=== PATIENT | female | born 1955 | race Caucasian/White ===

== ENCOUNTER 2016-08-18 14:17 | Outpatient (CLI) | payer OTHER ==
--- NOTE | 2016-08-20 14:32 | Mammography Report ---
DIGITAL SCREENING MAMMOGRAM: 08/18/2016 CLINICAL INDICATION: A 61-year-old for screening. COMPARISON: 08/2015, 05/2014, 04/2013, 04/2012, 03/2011, 01/2010, 11/2008, 10/2007. TECHNIQUE: Routine CC and MLO projections were obtained of the breasts. FINDINGS: Scattered fibroglandular tissue is present within the breasts. There are no dominant luis s, suspicious microcalcifications, or secondary signs of malignancy. In comparison to the previous st udies, there are no significant changes. ASSESSMENT: NO MAMMOGRAPHIC EVIDENCE OF MALIGNANCY. NO SIGNIFICANT INTERVAL CHANGES. RECOMMENDATION: Screening mammography is recommended annually. BI-RADS category 1 - negative. STANDARD QUALIFYING STATEMENTS 1. This examination was reviewed with the aid of Computed-Aided Detection (CAD). 2. A negative or benign imaging report should not delay biopsy if clinically suspicious findings are present. Consider surgical consultation if warranted. More than 5% of cancers are not identified by i maging. 3. Dense breasts may obscure an underlying neoplasm. JOB #: [id number] EXT JOB #:[id number]
== END 2016-08-18 14:18 | disposition home or self-care (01) ==
LOC: DI.N 14:17
PROVIDERS: ATTEND Family Medicine
DX: Z12.31 Encounter for screening mammogram for malignant neoplasm of breast (principal)
CPT/HCPCS: 77067

== ENCOUNTER 2017-08-13 13:49 | Outpatient (CLI) | payer BC ==
--- NOTE | 2017-08-16 14:02 | Mammography Report ---
SCREENING MAMMOGRAM: 08/13/2017 The patient will need to return for additional imaging due to technical factors. We will contact the patient to schedule their return. IMPRESSION: INCOMPLETE. RECOMMENDATION: Additional imaging. BIRADS CATEGORY: 0 - INCOMPLETE. STANDARD QUALIFYING STATEMENTS: 1. This examination was reviewed with the aid of Computer-Aided Detection (CAD). 2. A negative or benign imaging report should not delay biopsy if clinically suspicious findings are present. Consider surgical consultation if warranted. More than 5% of cancers are not identified by imaging. 3. Dense breasts may obscure an underlying neoplasm. TD: 08/16/2017 14:01
== END 2017-08-13 13:50 | disposition home or self-care (01) ==
LOC: DI.N 13:49
PROVIDERS: ATTEND Physician Assistant Medical
DX: Z12.31 Encounter for screening mammogram for malignant neoplasm of breast (principal); Z53.8 Procedure and treatment not carried out for other reasons
CPT/HCPCS: 77067

== ENCOUNTER 2017-08-25 15:22 | Outpatient (CLI) | payer BC ==
--- NOTE | 2017-08-31 10:42 | Mammography Report ---
EXAM: [id number] [facility] ([id number] SCREENING MAMMOGRAM: 08/13/2017 The patient will need to return for additional imaging due to technical factors. We will contact the patient to schedule their return. IMPRESSION: INCOMPLETE. RECOMMENDATION: Additional imaging. BIRADS CATEGORY: 0 - INCOMPLETE. STANDARD QUALIFYING STATEMENTS 1. This examination was reviewed with the aid of Computer-Aided Detection (CAD) . 2. A negative or benign imaging report should not delay biopsy if clinically suspicious findings are present. Consider surgical consultation if warranted. More than 5% of cancers are not identified by imaging. 3. Dense breasts may obscure an underlying neoplasm. TD: 08/16/2017 14:01 Fox Raiser: Reading Radiologist: Ermias Hagen MD Releasing Radiologist: Ermias Hagen MD Released Date Time: 08/16/17 1550 <Electronically signed by Ermias Hagen MD> cc: Celestina Medrano PA-C ADDENDUM ADDENDUM of 08/25/2017 DIGITAL SCREENING MAMMOGRAM: 08/13/2017 The patient originally presented on 08/13/2017, and returned on 08/25/2017 for additional images due to technical factors. INDICATION: A 62-year-old with history of late childbearing for screening. COMPARISON: 08/18/2016, 08/19/2015, 05/28/2014, 04/20/2013, 04/28/2012, 2010. TECHNIQUE: Routine CC and MLO projections were obtained of the breasts. FINDINGS: The breasts demonstrate scattered fibroglandular densities bilaterally. Punctate, typically benign calcifications are present. No suspicious masses, clustered microcalcifications, or regions of architectural distortion are identified. IMPRESSION: BENIGN FINDINGS. RECOMMENDATION: Routine annual screening unless otherwise clinically indicated. BI-RADS category 2 - Benign findings. STANDARD QUALIFYING STATEMENTS 1. This examination was reviewed with the aid of Computed-Aided Detection (CAD). 2. A negative or benign imaging report should not delay biopsy if clinically suspicious findings are present. Consider surgical consultation if warranted. More than 5% of cancers are not identified by imaging. 3. Dense breasts may obscure an underlying neoplasm. Addendum Fox Raiser: NATHAN Addendum Reading Radiologist: Ermias Hagen MD Addendum Releasing Radiologist: Ermias Hagen MD Addendum Released Date Time: 08/27/17 1545 TD: 08/25/2017 15:47 jll 08/31/2017 [email or web address]
--- NOTE | 2017-08-31 10:46 | Mammography Report ---
EXAM: [id number] [facility] ([id number] SCREENING MAMMOGRAM: 08/13/2017 The patient will need to return for additional imaging due to technical factors. We will contact the patient to schedule their return. IMPRESSION: INCOMPLETE. RECOMMENDATION: Additional imaging. BIRADS CATEGORY: 0 - INCOMPLETE. STANDARD QUALIFYING STATEMENTS 1. This examination was reviewed with the aid of Computer-Aided Detection (CAD) . 2. A negative or benign imaging report should not delay biopsy if clinically suspicious findings are present. Consider surgical consultation if warranted. More than 5% of cancers are not identified by imaging. 3. Dense breasts may obscure an underlying neoplasm. TD: 08/16/2017 14:01 Bowl Turner: Reading Radiologist: Ermias Hagen MD Releasing Radiologist: Ermias Hagen MD Released Date Time: 08/16/17 1550 <Electronically signed by Ermias Hagen MD> cc: Celestina Medrano PA-C ADDENDUM ADDENDUM of 08/25/2017 DIGITAL SCREENING MAMMOGRAM: 08/13/2017 The patient originally presented on 08/13/2017, and returned on 08/25/2017 for additional images due to technical factors. INDICATION: A 62-year-old with history of late childbearing for screening. COMPARISON: 08/18/2016, 08/19/2015, 05/28/2014, 04/20/2013, 04/28/2012, 2010. TECHNIQUE: Routine CC and MLO projections were obtained of the breasts. FINDINGS: The breasts demonstrate scattered fibroglandular densities bilaterally. Punctate, typically benign calcifications are present. No suspicious masses, clustered microcalcifications, or regions of architectural distortion are identified. IMPRESSION: BENIGN FINDINGS. RECOMMENDATION: Routine annual screening unless otherwise clinically indicated. BI-RADS category 2 - Benign findings. STANDARD QUALIFYING STATEMENTS 1. This examination was reviewed with the aid of Computed-Aided Detection (CAD). 2. A negative or benign imaging report should not delay biopsy if clinically suspicious findings are present. Consider surgical consultation if warranted. More than 5% of cancers are not identified by imaging. 3. Dense breasts may obscure an underlying neoplasm. Addendum Bowl Turner: NATHAN Addendum Reading Radiologist: Ermias Hagen MD Addendum Releasing Radiologist: Ermias Hagen MD Addendum Released Date Time: 08/27/17 1545 TD: 08/25/2017 15:47 jll 08/31/2017 [email or web address]
== END 2017-08-25 15:23 | disposition home or self-care (01) ==
LOC: DI 15:22
PROVIDERS: ATTEND Physician Assistant Medical
DX: Z12.31 Encounter for screening mammogram for malignant neoplasm of breast (principal)
CPT/HCPCS: 77067

== ENCOUNTER 2017-11-11 10:24 | Outpatient (CLI) | payer BC ==
--- NOTE | 2017-11-11 14:50 | XRAY Report ---
Procedure Date: 11/11/2017 Accession Number: [id number] / [id number] Procedure: XR - Knee 3 View RT CPT Code: FULL RESULT: EXAM: Knee 3 View RT DATE: 11/11/2017 11:00 AM CLINICAL HISTORY: KNEE PAIN,RT COMPARISON: None. TECHNIQUE: 3 views. FINDINGS: There is no fracture or dislocation. There are mild tricompartmental degenerative changes including joint space loss and marginal osteophytosis. There is a small joint effusion. Soft tissues are unremarkable. IMPRESSION: Mild osteoarthrosis. RADIA
== END 2017-11-11 10:25 | disposition home or self-care (01) ==
LOC: DI 10:24
PROVIDERS: ATTEND Physician Assistant Medical
DX: M17.11 Unilateral primary osteoarthritis, right knee (principal)

== ENCOUNTER 2018-08-29 14:13 | Outpatient (CLI) | payer BC ==
--- NOTE | 2018-08-30 10:37 | Mammography Report ---
Reason: SCREENING MAMMO Procedure Date: 08/29/2018 Accession Number: [id number] / [id number] Procedure: MGN - Screening Mammo Dig Bilat CPT Code: FULL RESULT: EXAM: Screening Mammo Dig Bilat DATE: 08/29/2018 2:35 PM CLINICAL HISTORY: Screening encounter. No reported risk factors. TECHNIQUE: (B) - Bilateral CC and MLO views were obtained. COMPARISON: 08/25/2017 through 05/28/2014. PARENCHYMAL PATTERN: (A) - The breast(s) demonstrate(s) scattered fibroglandular densities. FINDINGS: There are no suspicious masses, calcifications, or areas of distortion. IMPRESSION: Negative examination. BI-RADS category 1. RECOMMENDATION: (ANNUAL) - Recommend routine annual screening mammography. BI-RADS CATEGORY: (1) - Negative. STANDARD QUALIFYING STATEMENTS: 1. This examination was not reviewed with the aid of Computer-Aided Detection (CAD). 2. A negative or benign imaging report should not preclude biopsy if clinically suspicious findings are present. 3. Dense breasts may obscure an underlying neoplasm. 4. This examination was reviewed without the aid of 3D breast imaging (tomosynthesis).
== END 2018-08-29 14:14 | disposition home or self-care (01) ==
LOC: DI.N 14:13
DX: Z12.31 Encounter for screening mammogram for malignant neoplasm of breast (principal)
CPT/HCPCS: 77067

== ENCOUNTER 2018-10-12 07:32 | Day surgery (SDC) | payer BC ==
[2018-10-12] MEDS ORDERED: LACTATED RINGERS 1,000 ML IV ONE ×2 (07:41→11:30)
[2018-10-12] MEDS ORDERED: ONDANSETRON 4 MG/2 ML VIAL ONE (12:08)
[2018-10-12 12:20] VITALS: BP 117/77
== END 2018-10-12 07:33 | disposition home or self-care (01) ==
LOC: SDS 07:32
PROVIDERS: ATTEND Surgery
PROC: 0DJD8ZZ Inspection of Lower Intestinal Tract, Via Natural or Artificial Opening Endoscopic (ICD-10-PCS; principal; 2018-10-12 09:00)
DX: Z12.11 Encounter for screening for malignant neoplasm of colon (principal); K64.8 Other hemorrhoids; Z80.0 Family history of malignant neoplasm of digestive organs; J30.9 Allergic rhinitis, unspecified; Z79.82 Long term (current) use of aspirin; Z87.891 Personal history of nicotine dependence
CPT/HCPCS: 45378; J7120

== ENCOUNTER 2019-10-06 13:29 | Outpatient (CLI) | payer OTHER ==
--- NOTE | 2019-10-09 09:29 | Mammography Report ---
BILATERAL DIGITAL SCREENING MAMMOGRAM 3D/2D: 10/06/2019 CLINICAL: Routine screening. Comparison is made to exams dated: 08/29/2018 mammogram, 08/25/2017 mammogram, 08/13/2017 mammogram, and 08/18/2016 mammogram - [facility]. There are scattered fibroglandular elements in b oth breasts. There is a focal asymmetry in the right breast at 7 o'clock anterior depth. There is possible architectural distortion in the left breast at 2 o'clock middle depth. No other significant masses or calcifications are seen in either breast. IMPRESSION: INCOMPLETE: NEEDS ADDITIONAL IMAGING EVALUATION The focal asymmetry in the right breast at 7 o'clock anterior depth is indeterminate. Additional vie ws with possible ultrasound are recommended. The possible architectural distortion in the left breast at 2 o'clock middle depth is indeterminate. Additional views with possible ultrasound are recommended. This exam was interpreted at Station ID: [id number]. NOTE: For mammograms, a report in lay terms will be sent to the patient. Approximately 15% of breast malignancies will not be visualized mammographically. In the management of a palpable breast mass, a negative mammogram must not discourage biopsy of a clinically suspicious lesion. Electronically Signed By: Tova De La Cruz M.D. lk/:10/06/2019 16:09:06 ACR BI-RADS Category 0: Incomplete 3340F PARENCHYMAL PATTERN: (A) - The breast(s) demonstrate(s) scattered fibroglandular densities. BI-RADS CATEGORY: (0) - 0 Mammo and [place] [id number] Immediate follow-up LATERALITY: (B)
== END 2019-10-06 13:30 | disposition home or self-care (01) ==
LOC: DI 13:29
DX: Z12.31 Encounter for screening mammogram for malignant neoplasm of breast (principal)
CPT/HCPCS: 77063; 77067

== ENCOUNTER 2019-11-07 09:25 | Outpatient (CLI) | payer OTHER ==
--- NOTE | 2019-11-07 16:43 | DEXA Report ---
Reason: POST MENOPAUSAL Procedure Date: 11/07/2019 Accession Number: [id number] / [id number] Procedure: DEX - Dexa Spine and/or Hip CPT Code: Final Report FULL RESULT: PROCEDURE: Dexa Spine and/or Hip INDICATIONS: POST MENOPAUSAL TECHNIQUE: Dual energy x-ray absorptiometry (DXA) was performed on a [employer] System. Regions measured are the AP Spine, femoral neck, and if needed forearm. COMPARISON: None. FINDINGS: Lumbar Spine: Bone Mineral Density 1.212 g/cm/cm,T score 0.3, normal Left Hip: Bone Mineral Density 0.961 g/cm/cm,T score -0.4, normal Left Femoral Neck: Bone Mineral Density 0.95 g/cm/cm, T score 0.4, normal (T score greater or equal to -1.0: NORMAL) (T score from -1.1 to -2.4: OSTEOPENIA) (T score less than or equal to -2.5 to: OSTEOPOROSIS) Impression: Normal bone density. Patients with diagnosis of osteoporosis or osteopenia should have regular bone mineral density assessment. For those eligible for Medicare, routine testing is allowed once every 2 years. Testing frequency can be increased for patients who have rapidly progressing disease or for those who are receiving medical therapy to restore bone mass. Reviewed by: Treasure Holt MD, PhD on 11/07/2019 4:41 PM PDT Approved by: Treasure Holt MD, PhD on 11/07/2019 4:41 PM PDT Station ID: [id number]
--- NOTE | 2019-11-07 17:39 | XRAY Report ---
PROCEDURE: Knee 3 View LT INDICATIONS: POST MENOPAUSAL,OSTEOARTHRITIS KNEES,BILATERAL TECHNIQUE: 3 views of the left knee(s) were acquired. COMPARISON: None. FINDINGS: Bones: No fractures or dislocations. No suspicious bony lesions. There is moderate medial femoroti bial compartment narrowing. There are small intercondylar and patellofemoral osteophytes. There is a small patellar enthesophyte. Soft tissues: There is a small left joint effusion. No suspicious soft tissue calcifications. IMPRESSION: Mild degenerative changes and small left joint effusion. Reviewed by: Tova De La Cruz MD on 11/07/2019 5:38 PM PDT Approved by: Tova De La Cruz MD on 11/07/2019 5:38 PM PDT Station ID: [id number]
== END 2019-11-07 09:26 | disposition home or self-care (01) ==
LOC: DI 09:25
PROVIDERS: ATTEND Physician Assistant Medical
DX: Z78.0 Asymptomatic menopausal state (principal); M17.9 Osteoarthritis of knee, unspecified; M17.12 Unilateral primary osteoarthritis, left knee; M25.462 Effusion, left knee; R92.8 Other abnormal and inconclusive findings on diagnostic imaging of breast
CPT/HCPCS: 76642; 77066; 77080

== ENCOUNTER 2020-04-29 09:07 | Outpatient (CLI) | payer OTHER ==
--- NOTE | 2020-04-30 09:06 | Mammography Report ---
UNILATERAL RIGHT DIGITAL DIAGNOSTIC MAMMOGRAM 3D/2D: 04/29/2020 CLINICAL: Patient returns for a 6 month follow up of the right breast. Comparison is made to exams dated: 11/07/2019 mammogram, 10/06/2019 mammogram, 08/29/2018 mammogram, mammogram, and 08/13/2017 mammogram - [facility]. There are scattered fibrog landular elements in right breast. Redemonstration of previously described focal asymmetry in the right breast at 7 o'clock anterior dep th. This again appears less prominent and decreased in size and was not seen on the prior ultrasound . No other significant masses or calcifications are seen in the breast. IMPRESSION: PROBABLY BENIGN The focal asymmetry in the right breast is probably benign. A follow-up right mammogram in 6 months is recommended to demonstrate stability. The patient will also be due for screening mammogram of the contralateral breast at that time. Findings and recommendations were conveyed to the patient during today's evaluation. This exam was interpreted at Station ID: [id number]. NOTE: For mammograms, a report in lay terms will be sent to the patient. Approximately 15% of breast malignancies will not be visualized mammographically. In the management of a palpable breast mass, a negative mammogram must not discourage biopsy of a clinically suspicious lesion. Electronically Signed By: Yoshi Richter M.D. aty/:04/29/2020 11:13:00 ACR BI-RADS Category 3: Probably benign 3343F PARENCHYMAL PATTERN: (A) - The breast(s) demonstrate(s) scattered fibroglandular densities. BI-RADS CATEGORY: (3) - 3 Mammogram [id number] 6 month follow-up LATERALITY: (B)
== END 2020-04-29 09:08 | disposition home or self-care (01) ==
LOC: DI 09:07
PROVIDERS: ATTEND Physician Assistant Medical
DX: R92.8 Other abnormal and inconclusive findings on diagnostic imaging of breast (principal)

== ENCOUNTER 2020-09-09 12:06 | Outpatient (CLI) | payer OTHER ==
--- NOTE | 2020-09-09 18:02 | XRAY Report ---
PROCEDURE: Knee 3 View RT INDICATIONS: R KNEE PX TECHNIQUE: 3 views of the right knee(s) were acquired. COMPARISON: 11/11/2017 FINDINGS: Bones: No fractures or dislocations. No suspicious bony lesions. Age-appropriate degenerative mejia ges are seen. Soft tissues: No joint effusion. No suspicious soft tissue calcifications. IMPRESSION: The degenerative changes are seen, which are similar to 2018. If there is strong clinical concern for internal derangement of the knee, please consider a dedicated , scheduled knee MRI for further evaluation (assuming that there is no contraindication). Reviewed by: Simon Tejeda MD on 09/09/2020 5:00 PM JOYCE Approved by: Simon Tejeda MD on 09/09/2020 5:00 PM JOYCE Station ID: [id number]
== END 2020-09-09 23:59 | disposition home or self-care (01) ==
LOC: DI.N 12:06
PROVIDERS: ATTEND Family Medicine
DX: M25.561 Pain in right knee (principal)

== ENCOUNTER 2020-09-16 08:00 | Outpatient (CLI) | payer OTHER ==
--- NOTE | 2020-09-16 08:27 | XRAY Report ---
PROCEDURE: Knee 4 View RT INDICATIONS: R MEDIAL MENISCUS DERANGEMENT TECHNIQUE: 4 views of the right knee(s) were acquired. COMPARISON: Prior right knee plain films, 3 views, 09/09/2020. FINDINGS: Bones: No fractures or dislocations. No suspicious bony lesions. The pattern of mild medial compart ment right knee joint degenerative osteoarthritis is again noted. On the lateral view there is a smal l suprapatellar joint effusion. No loose body is found. The left knee is included on weightbearing vi ew and there is greater medial compartment left knee joint space narrowing that on the right. Soft tissues: No joint effusion. No suspicious soft tissue calcifications. IMPRESSION: No delayed visualization of the right knee fracture. Small suprapatellar right knee join t effusion. No loose body found. Depending on the clinical status follow-up by knee MRI may become ne cessary. Reviewed by: Golden James MD on 09/16/2020 7:26 AM JOYCE Approved by: Golden James MD on 09/16/2020 7:26 AM JOYCE Station ID: [id number]
== END 2020-09-16 23:59 | disposition home or self-care (01) ==
LOC: DI.N 08:00
PROVIDERS: ATTEND Physician Assistant
DX: M23.303 Other meniscus derangements, unspecified medial meniscus, right knee (principal); M25.461 Effusion, right knee

== ENCOUNTER 2021-01-15 09:53 | Outpatient (CLI) | payer OTHER ==
--- NOTE | 2021-01-16 11:49 | Mammography Report ---
BILATERAL DIGITAL DIAGNOSTIC MAMMOGRAM 3D/2D: 01/15/2021 CLINICAL: Patient returns for a 6 month follow up of the right breast, due for bilateral exam. Comparison is made to exams dated: 04/29/2020 mammogram, 11/07/2019 ultrasound, 11/07/2019 ultrasound, 11/07/2019 mammogram, 10/06/2019 mammogram, and 08/29/2018 mammogram - [facility]. Th ere are scattered fibroglandular elements in both breasts. The oval low density focal asymmetry with indistinct margins in the right breast at 6 o'clock anterio r depth is less prominent compared to the prior study from 11/05/2019 and similar in appearance compar ed to previous mammograms. No other significant masses, calcifications, or other findings are seen in either breast. IMPRESSION: BENIGN There is no mammographic evidence of malignancy. A 1 year screening mammogram is recommended. This exam was interpreted at Station ID: [id number]. NOTE: For mammograms, a report in lay terms will be sent to the patient. Approximately 15% of breast malignancies will not be visualized mammographically. In the management of a palpable breast mass, a negative mammogram must not discourage biopsy of a clinically suspicious lesion. Electronically Signed By: Ramirez Hernandez M.D. ddp/:01/15/2021 11:09:54 ACR BI-RADS Category 2: Benign Finding(s) 3342F PARENCHYMAL PATTERN: (A) - The breast(s) demonstrate(s) scattered fibroglandular densities. BI-RADS CATEGORY: (2) - 2 RECOMMENDATION: (ANNUAL) - Recommend routine annual screening mammography. [id number] 1 year screening LATERALITY: (B)
== END 2021-01-15 09:54 | disposition home or self-care (01) ==
LOC: DI 09:53
PROVIDERS: ATTEND Physician Assistant Medical
DX: R92.8 Other abnormal and inconclusive findings on diagnostic imaging of breast (principal)

== ENCOUNTER 2021-05-09 08:00 | Outpatient (CLI) | payer OTHER ==
[2021-05-09 12:58] LABS: CREATININE 0.6 mg/dL (0.4-1.0); POTASSIUM 3.6 mmol/L (3.5-5.0)
== END 2021-05-09 23:59 ==
LOC: LAB.N 08:00
PROVIDERS: ATTEND Physician Assistant
DX: R10.31 Right lower quadrant pain (principal)
CPT/HCPCS: 36415; 80048

== ENCOUNTER 2022-04-01 14:33 | Outpatient (CLI) | payer MEDICARE, BC ==
[2022-04-01] MEDS ORDERED: iohexoL-300 100 ML VIAL ONE (14:38)
[2022-04-01] MEDS ORDERED: DIATRIZOATE MEGLU/DIATRIZO SOD 30 ML BOTTLE PO ONE (14:38)
[2022-04-01 14:46] LABS: BASOPHILS % (AUTO) 0.5 %; EOSINOPHILS # (AUTO) 0.1 10^3/uL (0.0-0.7); EOSINOPHILS % (AUTO) 1.8 %; HCT - HEMATOCRIT 44.4 % (37.0-47.0); LYMPHOCYTES # (AUTO) 2.4 10^3/uL (1.5-3.5); MEAN CORPUSCULAR HEMOGLOBIN 26.3 pg (27.0-31.0); MEAN CORPUSCULAR HGB CONC 31.5 g/dL (32.0-36.0); MEAN CORPUSCULAR VOLUME 83.5 fL (81.0-99.0); MEAN PLATELET VOLUME 9.1 fL (7.9-10.8); MONOCYTES # (AUTO) 0.5 10^3/uL (0.0-1.0); MONOCYTES % (AUTO) 7.1 %; NEUTROPHILS # (AUTO) 4.6 10^3/uL (1.5-6.6); NEUTROPHILS % (AUTO) 59.5 %; PLT - PLATELET COUNT 370 10^3/uL (130-450); RED BLOOD COUNT 5.32 10^6/uL (4.20-5.40); RED CELL DISTRIBUTION WIDTH 14.1 % (12.0-15.0); WHITE BLOOD COUNT 7.7 x10^3/uL (4.8-10.8)
[2022-04-01 15:06] LABS: ALBUMIN 4.6 g/dL (3.2-5.5); ALBUMIN/GLOBULIN RATIO 1.6 (1.0-2.2); BILIRUBIN,TOTAL 1.1 mg/dL (0.2-1.0); CREATININE 0.6 mg/dL (0.4-1.0); POTASSIUM 4.1 mmol/L (3.5-5.0); TOTAL PROTEIN 7.5 g/dL (6.7-8.2)
[2022-04-01] MEDS: iohexoL-300 100 ML VIAL IVP ONE (16:03)
[2022-04-01] MEDS: DIATRIZOATE MEGLU/DIATRIZO SOD 30 ML BOTTLE PO ONE (16:04)
--- NOTE | 2022-04-01 16:18 | CT Report ---
PROCEDURE: ABDOMEN/PELVIS W INDICATIONS: RIGHT LOWER QUAD ABD PAIN CONTRAST: 100mL [id number] TECHNIQUE: After the administration of intravenous and oral contrast, 5 mm thick sections acquired from the diap hragms to the symphysis. 5 mm thick coronal and sagittal reformats were acquired. For radiation dos e reduction, the following was used: automated exposure control, adjustment of mA and/or kV accordin g to patient size. COMPARISON: 08/23/2013 FINDINGS: Image quality: Excellent. ABDOMEN: Lung bases: Lung bases are clear. Heart size is normal. Solid organs: Liver and spleen are normal in size and enhancement. Mild diffuse hepatic steatosis. G allbladder is unremarkable without calcified gallstones Biliary system is non dilated. Pancreas enh ances normally. No adrenal nodules. Kidneys demonstrate normal size and enhancement, without hydron ephrosis. Peritoneum and bowel: Bowel loops demonstrate normal wall thickness and caliber. No free fluid or a ir. Sigmoid diverticulosis. Appendix is not identified. Nodes and vessels: No retroperitoneal or mesenteric adenopathy by size criteria. Aorta and inferior vena cava are normal in size. Miscellaneous: No ventral hernias. PELVIS: Genitourinary: Bladder wall thickness is normal. Miscellaneous: No inguinal hernias or adenopathy. Bones: No suspicious bony lesions. No vertebral body compression fractures. IMPRESSION: 1. Appendix is not identified. 2. No evidence of acute abdominal process. 3. Mild diffuse hepatic steatosis. Reviewed by: Mariusz Patel MD on 04/01/2022 4:16 PM PST Approved by: Mariusz Patel MD on 04/01/2022 4:16 PM PST Station ID: [id number]
== END 2022-04-01 14:34 | disposition home or self-care (01) ==
LOC: LAB 14:33
PROVIDERS: ATTEND Physician Assistant Medical
DX: R10.31 Right lower quadrant pain (principal); K76.0 Fatty (change of) liver, not elsewhere classified
CPT/HCPCS: 36415; 74177; 80053; 83690; 85025; Q9963; Q9967

== ENCOUNTER 2022-08-11 15:26 | Outpatient (CLI) | payer MEDICARE, BC ==
--- NOTE | 2022-08-12 12:13 | Mammography Report ---
BILATERAL DIGITAL SCREENING MAMMOGRAM 3D/2D: 08/11/2022 CLINICAL: Routine screening. Comparison is made to exams dated: 01/15/2021 mammogram, 04/29/2020 mammogram, 11/07/2019 mammogram, an d 10/06/2019 mammogram - [facility]. There are scattered areas of fibroglandular density in both breasts (category b / 25%-50% glandular t issue). No significant masses, calcifications, or other findings are seen in either breast. There has been no significant interval change. IMPRESSION: NEGATIVE There is no mammographic evidence of malignancy. A 1 year screening mammogram is recommended. Based on the Tyrer Cuzick model (a risk assessment model) the patients lifetime risk is 7.3% and her 10 year risk is 3.6%. According to the ACR, ACS, and NCCN guidelines, an annual breast MRI exam annika g with mammogram is recommended if the patients lifetime risk is 20% or greater. This exam was interpreted at Station ID: [id number]. NOTE: For mammograms, a report in lay terms will be sent to the patient. Approximately 15% of breast malignancies will not be visualized mammographically. In the management of a palpable breast mass, a negative mammogram must not discourage biopsy of a clinically suspicious lesion. Electronically Signed By: Prabhakar deleon/derek:08/12/2022 07:20:56 letter sent: No_Letter ACR BI-RADS Category 1: Negative 3341F PARENCHYMAL PATTERN: (A) - The breast(s) demonstrate(s) scattered fibroglandular densities. BI-RADS CATEGORY: (1) - 1 Mammogram [id number] 1 year screening LATERALITY: (B)
== END 2022-08-11 15:27 | disposition home or self-care (01) ==
LOC: DI.N 15:26
DX: Z12.31 Encounter for screening mammogram for malignant neoplasm of breast (principal)

== ENCOUNTER 2023-09-10 07:30 | Outpatient (CLI) | payer MEDICARE, BC | END 2023-09-10 07:45 | disposition home or self-care (01) | LOC: LAB.N 07:30 | PROVIDERS: ATTEND Physician Assistant Medical | DX: N39.0 Urinary tract infection, site not specified (principal) | CPT/HCPCS: 87077; 87086; 87181 ==

== ENCOUNTER 2023-09-24 13:15 | Outpatient (CLI) | payer MEDICARE, BC | END 2023-09-24 13:30 | disposition home or self-care (01) | LOC: LAB.N 13:15 | PROVIDERS: ATTEND Physician Assistant Medical | DX: N39.0 Urinary tract infection, site not specified (principal) | CPT/HCPCS: 87077; 87086; 87181 ==

== ENCOUNTER 2023-10-06 13:30 | Outpatient (CLI) | payer MEDICARE, BC | END 2023-10-06 13:45 | disposition home or self-care (01) | LOC: LAB.N 13:30 | PROVIDERS: ATTEND Physician Assistant Medical | DX: N39.0 Urinary tract infection, site not specified (principal) | CPT/HCPCS: 87086 ==